=== PATIENT | female | born 1935 | race Hispanic/Latino ===

== ENCOUNTER 2018-11-12 11:42 | Outpatient (CLI) | payer MEDICARE, OTHER ==
--- NOTE | 2018-11-12 13:47 | XRay Report ---
RIGHT HIP, 2 views: History: Fall, pain, initial encounter. Osteopenia is evident. Moderate osteoarthritic changes are identified at the right hip. No evidence for fracture, dislocation or osteonecrosis. No large joint effusion is detected. IMPRESSION: No acute process. Osteopenia. Osteoarthritis.
--- NOTE | 2018-11-12 13:49 | XRay Report ---
LUMBOSACRAL SPINE, 5 VIEWS History: Fall, pain, initial encounter. Findings: There is residual oral contrast throughout the length of the colon from a previous GI study which limits this exam. Osteopenia is evident. There has been previous posterior fusion at L3-4. No evidence for compression deformity, subluxation or bone lesion. Moderate to severe degenerative disc disease and facet arthropathy are identified at all levels. Lateral bridging osteophytes are noted at L2-3 and L4-5. The oblique images poorly demonstrate the neural foramen. Impression: Osteopenia. Severe multilevel degenerative change. No acute process is appreciated. Stable appearance of the posterior fusion changes at L3-4.
== END 2018-11-12 11:43 | disposition home or self-care (01) ==
LOC: XRAY 11:42
PROVIDERS: ATTEND Internal Medicine
DX: M85.88 Other specified disorders of bone density and structure, other site (principal); M51.37 Other intervertebral disc degeneration, lumbosacral region; M16.11 Unilateral primary osteoarthritis, right hip; I10 Essential (primary) hypertension; E11.9 Type 2 diabetes mellitus without complications; M19.90 Unspecified osteoarthritis, unspecified site; Z90.49 Acquired absence of other specified parts of digestive tract; W19.XXXA Unspecified fall, initial encounter; Y93.89 Activity, other specified; Y92.89 Other specified places as the place of occurrence of the external cause; Y99.8 Other external cause status
CPT/HCPCS: 72110

== ENCOUNTER 2019-01-02 13:10 | Outpatient (CLI) | payer MEDICARE, OTHER ==
--- NOTE | 2019-01-02 21:45 | Vascular Lab Report ---
PROCEDURE: VL VENOUS DUPLEX LE RT TECHNIQUE: PROCEDURE: US RIGHT LOWER EXTREMITY VENOUS DUPLEX DOPPLER TECHNIQUE: Duplex Doppler ultrasound of the RIGHT common and superficial femoral, popliteal, posteri or tibial, and proximal deep femoral and greater saphenous veins was attempted. Elmore scale imaging wi th and without compression, spectral waveform analysis with and without augmentation, and color flow Doppler were employed. CPT 80342-SM HISTORY: Right lower extremity pain and swelling COMPARISONS: None . FINDINGS: Deep Venous Thrombus: None . Soft tissue abnormality: Irregular cystic lesion measuring 1.8 x 0.6 cm is noted in the popliteal fo ssa consistent with Rose's cyst. . Other: None . IMPRESSION: No evidence of deep venous thrombosis Small Rose's cyst. This document is electronically signed by Carlos Chatman MD., January 02 2019 09:42:57 PM ET
== END 2019-01-02 13:11 | disposition home or self-care (01) ==
LOC: VAS 13:10
PROVIDERS: ATTEND Podiatrist Foot & Ankle Surgery
DX: M71.21 Synovial cyst of popliteal space [Baker], right knee (principal); M79.662 Pain in left lower leg; M79.89 Other specified soft tissue disorders; E11.9 Type 2 diabetes mellitus without complications; I10 Essential (primary) hypertension; M19.90 Unspecified osteoarthritis, unspecified site

== ENCOUNTER 2019-02-25 08:23 | Outpatient (CLI) | payer MEDICARE, OTHER | END 2019-02-25 08:24 | disposition home or self-care (01) | LOC: LAB 08:23 | PROVIDERS: ATTEND Internal Medicine | DX: E11.9 Type 2 diabetes mellitus without complications (principal); E66.9 Obesity, unspecified; I10 Essential (primary) hypertension; E78.5 Hyperlipidemia, unspecified; Z90.710 Acquired absence of both cervix and uterus; Z90.49 Acquired absence of other specified parts of digestive tract | CPT/HCPCS: 36415; 83036 ==

== ENCOUNTER 2019-06-17 08:35 | Outpatient (CLI) | payer MEDICARE, OTHER ==
[2019-06-17 10:45] LABS: Hemoglobin 11.2 gm/dl (10.1-14.3); Mean Corpuscular HGB Conc 34 % (30-34); Mean Corpuscular Volume 91 fl (79-97); Platelet Count 232 K/mm3 (140-440); Red Blood Count 3.64 M/mm3 (3.65-5.03); Red Cell Distribution Width 14.2 % (13.2-15.2)
[2019-06-17 11:04] LABS: Calcium 9.7 mg/dL (8.4-10.2)
[2019-06-17 11:21] LABS: Chol/HDL Ratio 2.55 %
[2019-06-21 18:14] LABS: Vitamin D, 25-OH, D2 <4 ng/mL
== END 2019-06-17 08:36 | disposition home or self-care (01) ==
LOC: LAB 08:35
PROVIDERS: ATTEND Internal Medicine
DX: Z13.21 Encounter for screening for nutritional disorder (principal); E11.22 Type 2 diabetes mellitus with diabetic chronic kidney disease; I12.9 Hypertensive chronic kidney disease with stage 1 through stage 4 chronic kidney disease, or unspecified chronic kidney disease; N18.3 Chronic kidney disease, stage 3 (moderate); E78.5 Hyperlipidemia, unspecified; Z90.710 Acquired absence of both cervix and uterus
CPT/HCPCS: 36415; 80048; 80061; 82306; 82607; 83036; 84443; 85027

== ENCOUNTER 2019-12-15 16:27 | Outpatient (CLI) | payer MEDICARE, OTHER | END 2019-12-15 16:28 | disposition home or self-care (01) | LOC: CT 16:27 | PROVIDERS: ATTEND Internal Medicine Cardiovascular Disease | DX: R07.9 Chest pain, unspecified (principal) | CPT/HCPCS: 36415; 82565; 84520 ==

== ENCOUNTER 2019-12-23 09:35 | Outpatient (CLI) | payer MEDICARE, OTHER ==
--- NOTE | 2019-12-23 10:52 | Nuclear Medicine Report ---
TECHNICAL DATA: Inhaled administration followed by immediate static images of chest in multiple projections coordin ed with breathing instructions. Followed by immediate static images of chest in multiple projections post I.V. injection. 18.5 millicuries of 133 Xenon is administered by inhalation. Pulmonary wash-in, equilibrium, and washout phases are performed. Then, 5.4 millicuries of 99m Tc MAA is administered intravenously. FINDINGS: Chest imaging is compared same date The ventilation scan is normal without evidence of delayed washout. The perfusion scan demonstrates h omogeneous uptake without evidence of segmental or subsegmental defects. IMPRESSION: Normal lung scan. Signer Name: Dada Lawler MD Signed: 12/23/2019 10:47 AM Workstation Name: [id number]
--- NOTE | 2019-12-23 11:12 | XRay Report ---
CHEST 2 VIEWS INDICATION: R07.9 CHEST PAIN. COMPARISON: None. FINDINGS: Support devices: None. Heart: Within normal limits. Pulmonary vasculature:. Relatively large central pulmonary arteries. Lungs/pleura: No acute air space or interstitial disease. No pneumothorax. Additional findings: None. IMPRESSION: 1. No acute findings. 2. Large central pulmonary arteries most likely related to COPD. Signer Name: Prashant Iraheta MD Signed: 12/23/2019 11:07 AM Workstation Name: [id number]
== END 2019-12-23 09:36 | disposition home or self-care (01) ==
LOC: NM 09:35
PROVIDERS: ATTEND Internal Medicine Cardiovascular Disease
DX: R07.9 Chest pain, unspecified (principal)
CPT/HCPCS: 71045; 78582; A9540; A9558

== ENCOUNTER 2021-09-09 08:37 | Outpatient (CLI) | payer MEDICARE, OTHER ==
--- NOTE | 2021-09-09 10:48 | Mammography Report ---
DEXA BONE DENSITY SCAN INDICATION / CLINICAL INFORMATION: OSTEOPOROSIS. 86 years Female COMPARISON: None available. DISTAL ONE THIRD LEFT RADIUS: - Bone mineral density (BMD) = 0.552 g/cm2. - T-score = -2.3 - Z-score = Not reported Change (%) since most recent prior (if available): None available. RIGHT HIP, NECK : - Bone mineral density (BMD) = 0.679 g/cm2. - T-score = -1.5 - Z-score = Not reported Change (%) since most recent prior (if available): None available. LEFT HIP, NECK : - Bone mineral density (BMD) = 0.699 g/cm2. - T-score = -1.3 - Z-score = Not reported. Change (%) since most recent prior (if available): None available. IMPRESSION: 1. WHO Classification: Osteopenia. Fracture Risk: Increased. Please note that none of the Z scores we re reported on this exam. Note: 10-Year Fracture Risk (FRAX) not reported. This DEXA unit lacks FRAX functionality. BMD Reporting Guidelines (ISCD, 2015) BMD Reporting in Postmenopausal Women and in Men Age 50 and Older - T-scores are preferred. - The WHO densitometric classification is applicable. BMD Reporting in Females Prior to Menopause and in Males Younger Than Age 50 - Z-scores, not T-scores, are preferred. This is particularly important in children. - A Z-score of -2.0 or lower is defined as below the expected range for age, and a Z-score above -2.0 is within the expected range for age. - Osteoporosis cannot be diagnosed in men under age 50 on the basis of BMD alone. - The WHO diagnostic criteria may be applied to women in the menopausal transition. http://www.iscd.org/official-positions/1705-lbnw-truxisux-positions-adult/ Signer Name: Chris Escalona MD Signed: 09/09/2021 10:43 AM Workstation Name: [id number]
== END 2021-09-09 08:38 | disposition home or self-care (01) ==
LOC: MAMMO 08:37
PROVIDERS: ATTEND Internal Medicine
DX: M85.88 Other specified disorders of bone density and structure, other site (principal); M81.0 Age-related osteoporosis without current pathological fracture
CPT/HCPCS: 77080

== ENCOUNTER 2022-05-18 08:49 | Outpatient (CLI) | payer MEDICARE, OTHER | END 2022-05-18 08:50 | disposition home or self-care (01) | LOC: LABHHL 08:49 | PROVIDERS: ATTEND Internal Medicine | DX: E11.9 Type 2 diabetes mellitus without complications (principal) | CPT/HCPCS: 36415; 83036 ==